=== PATIENT | male | born 2000 | race Caucasian/White ===

== ENCOUNTER 2025-02-21 17:59 | Emergency (ER) | payer MEDICAID, OTHER, SELFPAY ==
[2025-02-21 18:20] VITALS: BP 136/80; PULSE 64; RESP 16; TEMP 36.7; O2SAT 100; BMI 21.8
--- NOTE | 2025-02-22 04:02 | ED_ITS ---
HPI - Eye Problem General Chief complaint: Eye Problems Stated complaint: Lt Eye irritation, Poss Object in eye Time Seen by Provider: 02/21/25 19:00 Related Data Previous Rx's ?Medication ?Instructions ?Recorded prednisone 20 mg tablet 20 mg PO SEE INSTRUCTIONS #8 tabs 03/16/16 Allergies Allergy/AdvReac Type Severity Reaction Status Date / Time No Known Drug Allergies Allergy Verified 02/21/25 18:24 Exam Initial Vital Signs Initial Vital Signs: Vital Signs Temperature 98.1 F 02/21/25 18:20 Pulse Rate 64 02/21/25 18:20 Respiratory Rate 16 02/21/25 18:20 Blood Pressure 136/80 02/21/25 18:20 Pulse Oximetry 100 02/21/25 18:20 Oxygen Delivery Method Room Air 02/21/25 18:20 Discharge Plan Departure Patient Disposition: Left Against Medical Advice Clinical Impression: Patient left without being seen Prescriptions: No Action prednisone 20 MG tablet 20 mg PO SEE INSTRUCTIONS Qty: 8 0RF Stand Alone Forms: Patient Portal/API, Against Med. Advice ([place])
== END 2025-02-21 19:20 | disposition left against medical advice (07) ==
PROVIDERS: Emergency Provider Family Medicine
CPT/HCPCS: 99281